=== PATIENT | female | born 1980 | race Caucasian/White ===

== ENCOUNTER → 2020-07-08 15:09 | Outpatient (CLI) | payer BC, SELFPAY ==
--- NOTE | ~2020-07-08 | MM_ITS ---
EXAMINATION: MM screening [facility] BI w [place] HISTORY: Screening mammogram TECHNIQUE: Craniocaudal and mediolateral oblique 3-D tomosynthesis images were obtained and synthetic 2-D images were generated. CAD analysis was submitted and interpreted. COMPARISON: 04/25/2019 limited left breast ultrasound 09/03/2016 bilateral diagnostic digital mammogram and complete bilateral breast ultrasound BREAST PARENCHYMAL COMPOSITION: The breasts are extremely dense, which lowers the sensitivity of mamm ography. FINDINGS: There is no evidence of suspicious mass, calcification, or architectural distortion to sugg est malignancy in either breast. There has been no suspicious interval change. IMPRESSION: 1. No mammographic evidence of malignancy. 2. Recommend routine screening mammography in one year. BI-RADS Category 1: Negative Reviewed, dictated and finalized at location A. T ROPE WALKER
== END ==
PROVIDERS: Visit Provider Obstetrics & Gynecology
DX: Z12.31 Encounter for screening mammogram for malignant neoplasm of breast (principal)
CPT/HCPCS: 77063; 77067

== ENCOUNTER → 2021-10-15 11:41 | Outpatient (CLI) | payer SELFPAY ==
--- NOTE | ~2021-10-15 | MM_ITS ---
EXAMINATION: MM screening [facility]on[facility] BI w [place] HISTORY: Screening mammogram TECHNIQUE: Craniocaudal and mediolateral oblique 3-D tomosynthesis images were obtained and synthetic 2-D images were generated. CAD analysis was submitted and interpreted. COMPARISON: 07/08/2020 bilateral screening mammogram 04/25/2019 limited left breast ultrasound 2. bilateral diagnostic mammography and bilateral complete breast ultrasound examination BREAST PARENCHYMAL COMPOSITION: The breasts are extremely dense, which lowers the sensitivity of mamm ography. FINDINGS: There is no evidence of suspicious mass, calcification, or architectural distortion to sugg est malignancy in either breast. There has been no suspicious interval change. IMPRESSION: 1. No mammographic evidence of malignancy. 2. Recommend routine screening mammography in one year. BI-RADS Category 1: Negative Reviewed, dictated and finalized at location A.
== END ==
PROVIDERS: Visit Provider Obstetrics & Gynecology
DX: Z12.31 Encounter for screening mammogram for malignant neoplasm of breast (principal)
CPT/HCPCS: 77063; 77067

== ENCOUNTER → 2023-01-03 12:48 | Outpatient (CLI) | payer SELFPAY ==
--- NOTE | ~2023-01-03 | MM_ITS ---
EXAMINATION: MM screening [facility]on[facility] BI w [place] HISTORY: Screening mammogram TECHNIQUE: Craniocaudal and mediolateral oblique 3-D tomosynthesis images were obtained and synthetic 2-D images were generated. CAD analysis was submitted and interpreted. COMPARISON: October 15, 2021, July 08, 2020 bilateral screening mammogram examinations BREAST PARENCHYMAL COMPOSITION: The breasts are extremely dense, which lowers the sensitivity of mamm ography. FINDINGS: Bilateral possible breast masses. Evaluation is limited due to the extremely dense breast t rauma. Bilateral complete breast ultrasound examination is recommended. IMPRESSION: 1. Possible bilateral breast masses; extremely dense breast tissue, which limits the mammographic exa mination 2. Bilateral complete breast ultrasound examination is recommended BI-RADS Category 0: Incomplete: Needs additional imaging evaluation. Reviewed, dictated and finalized at location C. IMPRESSION: 1. Possible bilateral breast masses; extremely dense breast tissue, which limit s the mammographic examination 2. Bilateral complete breast ultrasound examination is recommended BI-RADS Category 0: Incomplete: Needs additional imaging evaluation.
== END ==
PROVIDERS: PCP Obstetrics & Gynecology; Visit Provider Obstetrics & Gynecology
DX: Z12.31 Encounter for screening mammogram for malignant neoplasm of breast (principal); R92.8 Other abnormal and inconclusive findings on diagnostic imaging of breast
CPT/HCPCS: 77063; 77067

== ENCOUNTER → 2023-02-14 14:18 | Outpatient (CLI) | payer SELFPAY ==
--- NOTE | ~2023-02-14 | US_ITS ---
US breast BI complete DATE: 02/14/2023 14:40 INDICATION: Bilateral breast masses suggested on 01/03/2023 screening mammogram TECHNIQUE: Real-time imaging of both complete breasts including all 4 quadrants and subareolar areas COMPARISON: 01/03/2023 bilateral screening mammogram 04/25/2019 limited left breast ultrasound examination at 6:00: -13 x 22 mm circumscribed parallel solid mass lesion without suspicious shadowing at 6:00 subareo lar area 08/24/2016 bilateral complete breast ultrasound examination: -5:00 left breast irregular antiparallel lesion 0.5 cm from nipple measuring 5 x 6 mm (which reso lved on subsequent 04/25/2019 limited left breast ultrasound examination -1.8 cm subareolar left breast mass, suggestive is likely fibroadenoma FINDINGS: Right breast: 12:00 2 cm from nipple: 3 x 5 6 mm simple cyst 1:00 2 cm from nipple: 2.3 x 3.3 x 3.2 mm simple cyst 7:00 3 cm from nipple: Parallel circumscribed hypoechoic solid lesion measuring 6 x 16 x 22 mm, with through transmission, minimal internal vascularity, likely a benign fibroadenoma 9:00 4 cm from nipple: 4.3 x 3.5 x 4.1 mm cyst Left breast: 3:00 3 cm from nipple: Parallel circumscribed 2 x 5.8 x 3 mm hypoechoic lesion without shadowing, lik victor manuel benign 6:00 subareolar area: Parallel circumscribed hypoechoic solid approximately 1 x 2 x 1.7 cm mass witho ut suspicious shadowing, without internal vascularity on color flow imaging. This is likely a benign fibroadenoma. IMPRESSION: BI-RADS Category 3: Probably benign findings. 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 Reviewed, dictated and finalized at location A. IMPRESSION: BI-RADS Category 3: Probably benign findings. Probable bilateral be nign fibroadenomas, at right 7:00 position 3 cm from nipple and left 6:00 subar eolar area Recommendation: 6 month targeted bilateral Limited ultrasound follow-up
== END ==
PROVIDERS: PCP Obstetrics & Gynecology; Visit Provider Obstetrics & Gynecology
DX: R92.8 Other abnormal and inconclusive findings on diagnostic imaging of breast (principal)
CPT/HCPCS: 76641

== ENCOUNTER → 2023-09-19 14:46 | Outpatient (CLI) | payer SELFPAY ==
--- NOTE | ~2023-09-19 | US_ITS ---
US breast BI limited DATE: 09/19/2023 15:03 INDICATION: Six-month follow-up of right breast 7:00 lesion 3 cm from nipple and left breast 6:00 sub areolar lesion TECHNIQUE: Real-time imaging and color flow imaging targeted at right breast 7:00 3 cm from nipple an d 6:00 subareolar area COMPARISON: 02/14/2023 bilateral complete breast ultrasound examination 01/03/2023 bilateral screening mammogram examination FINDINGS: Right breast 7:00 3 cm from nipple: Parallel circumscribed hypoechoic 6 x 19 x 16 mm hypoechoic solid lesion with through transmission posterior enhancement, no internal vascularity, likely a benign fib roadenoma. This has diminished mildly in size from 6 x 22 x 16 mm since 02/14/2023. Left breast subareolar 6:00 lesion: 9.5 x 20 x 16 mm hypoechoic parallel solid lesion with through tr ansmission posterior enhancement, no internal vascularity on color flow imaging, most likely benign f ibroadenoma, stable or slightly diminished in size since 02/14/2023 IMPRESSION: BI-RADS Category 2: Benign findings Recommendation: Routine mammographic screening; consider supplemental ultrasound imaging due to the v leatha dense stroma, which may obscure masses. Reviewed, dictated and finalized at [facility]. Reviewed, dictated and finalized at location A. [employer] IMPRESSION: BI-RADS Category 2: Benign findings Recommendation: Routine mammographic screening; consider supplemental ultrasoun d imaging due to the very dense stroma, which may obscure masses.
== END ==
PROVIDERS: PCP Obstetrics & Gynecology; Visit Provider Obstetrics & Gynecology
DX: R92.8 Other abnormal and inconclusive findings on diagnostic imaging of breast (principal)
CPT/HCPCS: 76642